=== PATIENT | male | born 1985 | race Caucasian/White ===

== ENCOUNTER 2018-09-26 14:21 | Emergency (ER) | payer SELFPAY ==
[2018-09-26] MEDS: ONDANSETRON (ODT) 4 MG TAB ODT (14:53)
[2018-09-26] MEDS: morphine LIQ (10 MG/5 ML) CUP PO (14:53)
== END 2018-09-26 17:20 | disposition home or self-care (01) ==
LOC: FTE 14:21
DX: S22.42XA Multiple fractures of ribs, left side, initial encounter for closed fracture (principal); W01.0XXA Fall on same level from slipping, tripping and stumbling without subsequent striking against object, initial encounter; Y92.9 Unspecified place or not applicable
CPT/HCPCS: 71250; 73562; 74176; 99284-25